=== PATIENT | female | born 1980 | race Caucasian/White ===

== ENCOUNTER 2017-09-25 21:13 | Emergency (ER) | payer BC ==
[~2017-09-25] VITALS: Ht 162.6 cm; Wt 70.3 kg
[~2017-09-25 21:13] MED LIST: VENTOLIN HFA INH8 GM
[2017-09-25 21:44] LABS: ABSOLUTE BASOPHILS 0.1 thou/uL (0.0-0.2); ABSOLUTE EOSINOPHILS 0.2 thou/uL (0.0-0.7); ABSOLUTE LYMPHOCYTES 2.2 thou/uL (0.8-5.3); ABSOLUTE MONOCYTES 0.6 thou/uL (0.0-1.2); ABSOLUTE NEUTROPHILS 2.6 thou/uL (1.6-8.1); BASOPHILS 1.4 %; EOSINOPHILS 3.7 %; HEMATOCRIT 39.6 % (37.0-47.0); HEMOGLOBIN 13.5 gm/dL (12.0-15.0); LYMPHOCYTES 38.5 %; MCH 33.3 pg (26.0-34.0); MCV 97.7 fL (80.0-100.0); MONOCYTES 10.4 %; NUCLEATED RBCS 0 /100WBC; PLATELET COUNT* 253 thou/uL (150-400); RBC 4.06 mil/uL (4.20-5.00); RDW-CV 12.8 % (10.5-14.5); WBC 5.6 thou/uL (4.0-11.0)
[2017-09-25 21:51] LABS: CALCIUM 9.3 mg/dL (8.5-10.1); POTASSIUM 3.5 mmol/L (3.5-5.1)
[2017-09-25 21:56] LABS: ALBUMIN 4.3 g/dL (3.4-5.0); TOTAL BILIRUBIN 0.3 mg/dL (<0.1-1.0)
[2017-09-25 22:33] LABS: URINE BILIRUBIN NEGATIVE (Negative); URINE BLOOD NEGATIVE (Negative); URINE CLARITY CLEAR; URINE COLOR STRAW; URINE GLUCOSE-RANDOM NEGATIVE (Negative); URINE KETONES 1+ (Negative); URINE LEUKOCYTES-REFLEX NEGATIVE (Negative); URINE NITRITE-REFLEX NEGATIVE (Negative); URINE PROTEIN NEGATIVE (Negative); URINE SPECIFIC GRAVITY <= 1.005 (1.005-1.030); URINE UROBILINOGEN 0.2 E.U./dl (0.2-1.0)
[2017-09-25 23:03] VITALS: BP 117/51
--- NOTE | 2017-09-26 09:40 | EKG ---
[place] [address] ELECTROCARDIOGRAM REPORT Name: YAWJELLY Ovi Room: [facility]#: [id number] Admission: 09/25/17 Attend Phys: Discharge: 09/25/17 Date of : 78 Report #: [id number] THIS REPORT FOR: //name// [facility] ED Test Date: 2017-09-25 Test Time: 21:18:08 Pat Name: JELLY TIDWELL Department: Room: Gender: F Receiving Operator: DEJAH : 1980 Requested By: Johanan Street Order Number: [id number] MD: Shan Montejo Measurements Intervals [place] Rate: 90 P: 55 OK: 160 QRS: 36 QRSD: 86 T: 19 QT: 343 QTc: 420 Interpretive Statements Sinus rhythm Baseline wander in lead(s) V3,V4 No previous ECG available for comparison Electronically Signed On 09-26-2017 9:40:05 CDT by Shan Montejo [email or web address] <ELECTRONICALLY SIGNED> By: Shan Montejo MD, [facility] 09/26/17 0940 [id number] 17 Shan Montejo MD, FACC /EPI
== END 2017-09-25 23:03 | disposition home or self-care (01) ==
LOC: M.ERS 21:13
PROVIDERS: Emergency Medicine
DX: R07.89 Other chest pain (principal)